=== PATIENT | female | born 1980 | race Caucasian/White ===

== ENCOUNTER 2016-08-25 10:25 | Emergency (ER) | payer SELFPAY ==
[~2016-08-25 10:25] MED LIST: 'PARAFON FORTE500 M1 PO; AMOXICILLIN500 M2 PO; AMOXICILLIN500 MG PO; AUGMENTIN 875 M1 TAB PO; CELEXA20 MG PO; CEPHALEXIN500 M1 PO; CLARITIN10 MG PO; CLEOCIN150 MG PO; DOXYCYCLINE100 M3 PO; FLAGYL500 MG PO; FLEXERIL5 MG PO; IBUPROFEN 30 M800 MG; LOTRIMIN1% T; MACROBID100 M1 PO; MACRODANTIN100 MG PO; MEDROL DOSEPAK4 MG PO; MOTRIN800 MG PO; Motrin,Rufen800 MG PO; NAPROSYN500 MG PO; OMNICEF300 MG; PEPCID20 MG PO; PERCOCET 325 MG1 TA2; PNV-TOTAL1 SGL PO; PREDNISONE10 MG PO; PRENATAL1 TA1; PRENATAL1 TA1 PO; PRENATAL1 TA3 PO; PREVACID15 MG PO; PROVENTIL0.09 MG/AC; PYRIDIUM200 MG PO; SEROQUEL300 MG; SEROQUEL50 MG PO; STRATTERA60 MG PO; ULTRAM50 MG; XANAX0.5 MG PO; XANAX1 MG PO; ZITHROMAX Z PA250 MG PO; ZOFRAN4 MG; ZOFRAN4 MG PO; ZOFRAN8 MG PO; ZYRTEC10 MG PO
[2016-08-25 10:31] VITALS: BP 159/87
[2016-08-25 11:02] LABS: BILIRUBIN 1+ (NEGATIVE); BLOOD TRACE-LYSED (NEGATIVE); CLARITY SL CLOUDY (CLEAR); COLOR YELLOW (YELLOW); GLUCOSE NEGATIVE (NEGATIVE); KETONE TRACE (NEGATIVE); LEUKO ESTERASE NEGATIVE (NEGATIVE); NITRITE NEGATIVE (NEGATIVE); PH 6.5 (5.0-9.0); PROTEIN 2+ (NEGATIVE); UROBILINOGEN 0.2 E.U./dl (0.2-1.0)
[2016-08-25 11:26] LABS: BACTERIA TRACE
[2016-08-25 11:27] LABS: URINE REFLEX COMMENT NO (NO)
[2016-08-25] MEDS ORDERED: CLINDAMYCIN150 MG PO (11:37)
== END 2016-08-25 13:34 | disposition home or self-care (01) ==
LOC: ED 10:25
PROVIDERS: Student in an Organized Health Care Education/Training Program
DX: O26.891 Other specified pregnancy related conditions, first trimester (principal); R10.9 Unspecified abdominal pain; O99.511 Diseases of the respiratory system complicating pregnancy, first trimester; J45.909 Unspecified asthma, uncomplicated; O99.611 Diseases of the digestive system complicating pregnancy, first trimester; K02.9 Dental caries, unspecified; O12.11 Gestational proteinuria, first trimester; O16.1 Unspecified maternal hypertension, first trimester; Z3A.12 12 weeks gestation of pregnancy; Z90.49 Acquired absence of other specified parts of digestive tract; Z88.8 Allergy status to other drugs, medicaments and biological substances

== ENCOUNTER 2018-03-29 09:12 | Emergency (ER) | payer OTHER ==
[~2018-03-29] VITALS: Ht 157.4 cm; Wt 97.1 kg
[2018-03-29 09:12] VITALS: BP 129/51
[~2018-03-29 09:12] MED LIST changes: +CLINDAMYCIN150 MG PO
[2018-03-29] MEDS ORDERED: PENICILLIN VK500 MG PO (09:19)
== END 2018-03-29 09:30 | disposition home or self-care (01) ==
LOC: ED 09:12
DX: O99.612 Diseases of the digestive system complicating pregnancy, second trimester (principal); O10.912 Unspecified pre-existing hypertension complicating pregnancy, second trimester; K02.9 Dental caries, unspecified; J45.909 Unspecified asthma, uncomplicated; Z3A.25 25 weeks gestation of pregnancy

== ENCOUNTER 2018-04-08 12:38 | Emergency (ER) | payer OTHER ==
[~2018-04-08] VITALS: Ht 157.4 cm; Wt 98.0 kg
[~2018-04-08 12:38] MED LIST changes: +PENICILLIN VK500 MG PO
[2018-04-08 12:39] VITALS: BP 126/81
[2018-04-08] MEDS ORDERED: CLINDAMYCIN HC300 MG PO (13:24)
== END 2018-04-08 13:45 | disposition home or self-care (01) ==
LOC: ED 12:38
DX: O99.612 Diseases of the digestive system complicating pregnancy, second trimester (principal); K08.89 Other specified disorders of teeth and supporting structures; Z88.8 Allergy status to other drugs, medicaments and biological substances; Z3A.27 27 weeks gestation of pregnancy

== ENCOUNTER 2019-02-05 09:19 | Emergency (ER) | payer OTHER ==
[~2019-02-05] VITALS: Ht 157.4 cm; Wt 86.2 kg
[~2019-02-05 09:19] MED LIST changes: +CLINDAMYCIN HC300 MG PO
[2019-02-05 09:21] VITALS: BP 121/71
[2019-02-05] MEDS ORDERED: LAMOTRIGINE25 M1 PO (09:22)
[2019-02-05] MEDS ORDERED: BUSPIRONE HCL10 MG PO (09:22)
[2019-02-05] MEDS ORDERED: AMOXICILLIN500 M3 PO (10:42)
== END 2019-02-05 10:58 | disposition home or self-care (01) ==
LOC: ED 09:19
DX: K04.7 Periapical abscess without sinus (principal); J06.9 Acute upper respiratory infection, unspecified; J45.909 Unspecified asthma, uncomplicated; F17.200 Nicotine dependence, unspecified, uncomplicated; Z88.8 Allergy status to other drugs, medicaments and biological substances; Z79.899 Other long term (current) drug therapy

== ENCOUNTER 2019-04-03 09:28 | Emergency (ER) | payer OTHER ==
[~2019-04-03] VITALS: Ht 157.4 cm; Wt 81.2 kg
[~2019-04-03 09:28] MED LIST changes: +AMOXICILLIN500 M3 PO; +BUSPIRONE HCL10 MG PO; +LAMOTRIGINE25 M1 PO
[2019-04-03 09:36] VITALS: BP 122/86
[2019-04-03 10:37] LABS: BILIRUBIN NEGATIVE (NEGATIVE); BLOOD NEGATIVE (NEGATIVE); CLARITY SL CLOUDY (CLEAR); COLOR YELLOW (YELLOW); GLUCOSE NEGATIVE (NEGATIVE); KETONE NEGATIVE (NEGATIVE); LEUKO ESTERASE NEGATIVE (NEGATIVE); NITRITE NEGATIVE (NEGATIVE); SPECIFIC GRAVITY >= 1.030 (1.005-1.030); UROBILINOGEN 0.2 E.U./dl (0.2-1.0)
[2019-04-03 10:53] LABS: BACTERIA TRACE; EPITHELIAL CELLS TNTC
[2019-04-03] MEDS ORDERED: IBU800 MG PO (11:03)
[2019-04-03] MEDS ORDERED: DOXYCYCLINE100 M3 PO (11:03)
== END 2019-04-03 11:07 | disposition home or self-care (01) ==
LOC: ED 09:28
PROVIDERS: Nurse Practitioner Family
DX: S30.0XXA Contusion of lower back and pelvis, initial encounter (principal); J32.9 Chronic sinusitis, unspecified; J45.909 Unspecified asthma, uncomplicated; M06.9 Rheumatoid arthritis, unspecified; F17.200 Nicotine dependence, unspecified, uncomplicated; W22.8XXA Striking against or struck by other objects, initial encounter; Y93.89 Activity, other specified; Y92.89 Other specified places as the place of occurrence of the external cause; Y99.8 Other external cause status

== ENCOUNTER 2019-04-25 12:28 | Emergency (ER) | payer OTHER ==
[~2019-04-25] VITALS: Ht 157.4 cm; Wt 81.2 kg
[~2019-04-25 12:28] MED LIST changes: +IBU800 MG PO
[2019-04-25 12:35] VITALS: BP 143/78
[2019-04-25] MEDS ORDERED: FLONASE ALLERG9.9 ML NAS (14:44)
[2019-04-25] MEDS ORDERED: CLARITIN10 MG PO (14:44)
== END 2019-04-25 14:48 | disposition home or self-care (01) ==
LOC: ED 12:28
DX: B34.9 Viral infection, unspecified (principal); R11.2 Nausea with vomiting, unspecified; J45.909 Unspecified asthma, uncomplicated; F17.200 Nicotine dependence, unspecified, uncomplicated; Z90.49 Acquired absence of other specified parts of digestive tract; Z88.8 Allergy status to other drugs, medicaments and biological substances; Z79.2 Long term (current) use of antibiotics; Z79.899 Other long term (current) drug therapy

== ENCOUNTER 2019-12-16 15:53 | Emergency (ER) | payer OTHER ==
[~2019-12-16 15:53] MED LIST changes: +FLONASE ALLERG9.9 ML NAS
[2019-12-16 15:59] VITALS: BP 125/81
[2019-12-16 16:22] LABS: BILIRUBIN Negative (Negative); BLOOD 3+ (Negative); CLARITY Clear (Clear); COLOR Yellow (Yellow); GLUCOSE Negative (Negative); KETONE Trace (Negative); LEUKO ESTERASE 1+ (Negative); NITRITE Negative (Negative); PH 6.5 (4.5-8.0)
[2019-12-16 16:28] LABS: BASO % 0.6 % (0.0-1.0); EOS # 0.1 10*3/uL (0.0-0.4); EOS % 1.7 % (1.0-4.0); LYMPH # 1.9 10*3/uL (1.3-4.4); LYMPH % 27.2 % (27.0-41.0); MEAN CELL VOLUME 95.1 fl (81.0-99.0); MEAN CORPUSCULAR HGB 31.6 pg (27.0-31.0); MEAN CORPUSCULAR HGB CONC 33.3 g/dl (33.0-37.0); MEAN PLATELET VOLUME 10.3 fl (9.6-12.3); MONO # 0.4 10*3/uL (0.1-1.0); MONO % 5.6 % (3.0-9.0); NEUT # 4.5 10*3/uL (2.3-7.9); NEUT % 64.8 % (47.0-73.0); PLATELET COUNT AUTOMATED 258 10*3/uL (130-400); RED BLOOD COUNT 4.52 10*6/uL (4.10-5.10); RED CELL DISTRI WIDTH 12.8 % (0-14.5); WHITE BLOOD COUNT 6.9 10*3/uL (4.8-10.8)
[2019-12-16 16:43] LABS: ALBUMIN 3.7 gm/dl (3.1-4.5); ALKALINE PHOSPHATASE 60 U/L (45-117); BUN 7 mg/dl (7-24); CHLORIDE 107 mmol/L (98-107); CREATININE 0.63 mg/dL (0.55-1.02); POTASSIUM 3.3 mmol/L (3.5-5.1); SGOT/AST 16 IU/L (3-35); SGPT/ALT 23 U/L (12-78); SODIUM 137 mmol/L (136-145); TOTAL PROTEIN 7.6 gm/dL (6.4-8.2)
[2019-12-16 16:51] LABS: BACTERIA 1+; RBC 0-2 rbc/hpf (0-2)
[2019-12-16] MEDS ORDERED: CEPHALEXIN500 M1 PO (18:46)
== END 2019-12-16 18:54 | disposition home or self-care (01) ==
LOC: ED 15:53
PROVIDERS: Nurse Practitioner Family
DX: O23.91 Unspecified genitourinary tract infection in pregnancy, first trimester (principal); Z3A.08 8 weeks gestation of pregnancy; Z88.8 Allergy status to other drugs, medicaments and biological substances; Z79.899 Other long term (current) drug therapy

== ENCOUNTER 2020-04-15 13:51 | Emergency (ER) | payer OTHER ==
[~2020-04-15] VITALS: Ht 157.4 cm; Wt 78.0 kg
[2020-04-15 14:01] VITALS: BP 135/80
[2020-04-15] MEDS ORDERED: NAPROXEN250 MG PO (14:22)
[2020-04-15] MEDS ORDERED: TYLENOL325 M1 PO (14:22)
[2020-04-15] MEDS ORDERED: CYCLOBENZAPRINE10 MG PO (14:22)
== END 2020-04-15 14:28 | disposition home or self-care (01) ==
LOC: ED 13:51
DX: M79.18 Myalgia, other site (principal); M54.6 Pain in thoracic spine; E66.9 Obesity, unspecified; J45.909 Unspecified asthma, uncomplicated; I10 Essential (primary) hypertension; F41.9 Anxiety disorder, unspecified; F17.210 Nicotine dependence, cigarettes, uncomplicated; Z90.49 Acquired absence of other specified parts of digestive tract; Z88.6 Allergy status to analgesic agent; Z79.2 Long term (current) use of antibiotics; Z79.899 Other long term (current) drug therapy; W01.0XXA Fall on same level from slipping, tripping and stumbling without subsequent striking against object, initial encounter; Y93.89 Activity, other specified; Y92.89 Other specified places as the place of occurrence of the external cause; Y99.8 Other external cause status

== ENCOUNTER 2022-05-07 11:04 | Emergency (ER) | payer OTHER ==
[~2022-05-07] VITALS: Wt 88.5 kg
[~2022-05-07 11:04] MED LIST changes: +CYCLOBENZAPRINE10 MG PO; +NAPROXEN250 MG PO; +TYLENOL325 M1 PO
[2022-05-07 11:13] VITALS: BP 131/73
[2022-05-07 12:21] LABS: BASO % 0.5 % (0.0-1.0); EOS # 0.1 10*3/uL (0.0-0.4); EOS % 1.5 % (1.0-4.0); HEMATOCRIT 42.2 % (37.0-47.0); LYMPH # 1.6 10*3/uL (1.3-4.4); LYMPH % 21.7 % (27.0-41.0); MEAN CELL VOLUME 95.5 fl (81.0-99.0); MEAN CORPUSCULAR HGB 32.4 pg (27.0-31.0); MEAN CORPUSCULAR HGB CONC 33.9 g/dl (33.0-37.0); MEAN PLATELET VOLUME 10.1 fl (9.6-12.3); MONO # 0.5 10*3/uL (0.1-1.0); MONO % 6.9 % (3.0-9.0); NEUT # 5.2 10*3/uL (2.3-7.9); NEUT % 69.1 % (47.0-73.0); PLATELET COUNT AUTOMATED 285 10*3/uL (130-400); RED BLOOD COUNT 4.42 10*6/uL (4.10-5.10); RED CELL DISTRI WIDTH 13.5 % (0-14.5); WHITE BLOOD COUNT 7.5 10*3/uL (4.8-10.8)
[2022-05-07 12:50] LABS: ALKALINE PHOSPHATASE 45 U/L (46-116); BUN 6 mg/dl (9-23); CHLORIDE 103 mmol/L (98-107); POTASSIUM 3.9 mmol/L (3.4-5.1); SGPT/ALT 25 U/L (10-49); TOTAL PROTEIN 7.3 gm/dL (6.0-8.0)
== END 2022-05-07 16:26 | disposition home or self-care (01) ==
LOC: ED 11:04
PROVIDERS: Internal Medicine
DX: O46.91 Antepartum hemorrhage, unspecified, first trimester (principal); J45.909 Unspecified asthma, uncomplicated; F41.9 Anxiety disorder, unspecified; Z90.49 Acquired absence of other specified parts of digestive tract; Z88.8 Allergy status to other drugs, medicaments and biological substances; Z98.890 Other specified postprocedural states; Z3A.01 Less than 8 weeks gestation of pregnancy

== ENCOUNTER 2022-06-14 10:31 | Emergency (ER) | payer OTHER | END 2022-06-14 10:42 | disposition left against medical advice (07) | LOC: ED 10:31 | DX: Z53.21 Procedure and treatment not carried out due to patient leaving prior to being seen by health care provider (principal) ==

== ENCOUNTER 2022-06-20 09:32 | Emergency (ER) | payer OTHER ==
[~2022-06-20] VITALS: Ht 157.4 cm; Wt 97.5 kg
[2022-06-20 09:40] VITALS: BP 128/89
[2022-06-20 09:59] LABS: BILIRUBIN Negative (Negative); BLOOD Negative (Negative); CLARITY Clear (Clear); COLOR Yellow (Yellow); GLUCOSE Negative (Negative); KETONE Negative (Negative); LEUKO ESTERASE Trace (Negative); NITRITE Negative (Negative); PH 6.5 (4.5-8.0); SPECIFIC GRAVITY 1.015 (1.001-1.030)
[2022-06-20 10:12] LABS: BASO % 0.3 % (0.0-1.0); EOS # 0.2 10*3/uL (0.0-0.4); EOS % 1.8 % (1.0-4.0); HEMATOCRIT 38.4 % (37.0-47.0); LYMPH # 1.5 10*3/uL (1.3-4.4); LYMPH % 16.8 % (27.0-41.0); MEAN CELL VOLUME 94.8 fl (81.0-99.0); MEAN CORPUSCULAR HGB 33.3 pg (27.0-31.0); MEAN CORPUSCULAR HGB CONC 35.2 g/dl (33.0-37.0); MEAN PLATELET VOLUME 10.1 fl (9.6-12.3); MONO # 0.6 10*3/uL (0.1-1.0); MONO % 6.6 % (3.0-9.0); NEUT # 6.4 10*3/uL (2.3-7.9); NEUT % 73.9 % (47.0-73.0); PLATELET COUNT AUTOMATED 260 10*3/uL (130-400); RED BLOOD COUNT 4.05 10*6/uL (4.10-5.10); WHITE BLOOD COUNT 8.7 10*3/uL (4.8-10.8)
[2022-06-20 10:36] LABS: BACTERIA 2+; EPITHELIAL CELLS 16-20; MUCOUS 1+
[2022-06-20 10:45] LABS: ALKALINE PHOSPHATASE 49 U/L (46-116); CHLORIDE 106 mmol/L (98-107); LIPASE 30 U/L (12-53); POTASSIUM 3.6 mmol/L (3.4-5.1); SGPT/ALT 17 U/L (10-49); TOTAL PROTEIN 6.7 gm/dL (6.0-8.0)
[2022-06-20 10:55] LABS: BUN < 5 mg/dl (9-23)
[2022-06-20] MEDS ORDERED: MACROBID100 M1 PO (11:33)
== END 2022-06-20 11:36 | disposition home or self-care (01) ==
LOC: ED 09:32
PROVIDERS: Emergency Medicine
DX: O23.91 Unspecified genitourinary tract infection in pregnancy, first trimester (principal); Z20.2 Contact with and (suspected) exposure to infections with a predominantly sexual mode of transmission; Z3A.13 13 weeks gestation of pregnancy; Z88.8 Allergy status to other drugs, medicaments and biological substances; Z79.899 Other long term (current) drug therapy

== ENCOUNTER 2022-11-05 11:33 | Emergency (ER) | payer OTHER ==
[~2022-11-05] VITALS: Ht 157.4 cm; Wt 108.0 kg
[2022-11-05 11:43] VITALS: BP 156/93
[2022-11-05] MEDS ORDERED: CLINDAMYCIN HC300 MG PO (11:49)
== END 2022-11-05 11:59 | disposition home or self-care (01) ==
LOC: ED 11:33
DX: K02.9 Dental caries, unspecified (principal); J45.909 Unspecified asthma, uncomplicated; F41.9 Anxiety disorder, unspecified; Z88.8 Allergy status to other drugs, medicaments and biological substances; Z98.890 Other specified postprocedural states; Z90.49 Acquired absence of other specified parts of digestive tract

== ENCOUNTER 2023-09-26 13:47 | Emergency (ER) | payer OTHER ==
[~2023-09-26] VITALS: Ht 157.4 cm; Wt 93.0 kg
[2023-09-26 14:04] VITALS: BP 109/87
[2023-09-26] MEDS ORDERED: PENICILLIN VK500 MG PO (14:26)
== END 2023-09-26 15:20 | disposition home or self-care (01) ==
LOC: ED 13:47
DX: K08.89 Other specified disorders of teeth and supporting structures (principal); J45.909 Unspecified asthma, uncomplicated; F41.9 Anxiety disorder, unspecified; Z88.8 Allergy status to other drugs, medicaments and biological substances; Z98.890 Other specified postprocedural states; Z90.49 Acquired absence of other specified parts of digestive tract

== ENCOUNTER 2023-11-12 15:09 | Emergency (ER) | payer OTHER ==
[~2023-11-12] VITALS: Ht 157.4 cm; Wt 86.2 kg
[2023-11-12 15:18] VITALS: BP 113/95
[2023-11-12] MEDS ORDERED: ATOMOXETINE HCL60 MG PO (15:20)
[2023-11-12] MEDS ORDERED: DOCUSATE SOD100 MG PO (15:20)
[2023-11-12] MEDS ORDERED: REXULTI1 MG PO (15:20)
[2023-11-12] MEDS ORDERED: 'XANAX1 MG PO (15:20)
[2023-11-12] MEDS ORDERED: ZOLPIDEM10 MG PO (15:21)
[2023-11-12] MEDS ORDERED: Acetaminophen/Oxycodone 5 MG/325 MG TABLET PO ONE (16:00)
[2023-11-12] MEDS ORDERED: NAPROSYN500 MG PO (16:21)
== END 2023-11-12 16:49 | disposition home or self-care (01) ==
LOC: ED 15:09
DX: S60.211A Contusion of right wrist, initial encounter (principal); J45.909 Unspecified asthma, uncomplicated; I10 Essential (primary) hypertension; Z88.8 Allergy status to other drugs, medicaments and biological substances; Z90.49 Acquired absence of other specified parts of digestive tract; Z98.890 Other specified postprocedural states; W22.03XA Walked into furniture, initial encounter; Y93.89 Activity, other specified; Y92.89 Other specified places as the place of occurrence of the external cause; Y99.8 Other external cause status

== ENCOUNTER 2023-11-23 12:39 | Emergency (ER) | payer OTHER ==
[~2023-11-23 12:39] MED LIST changes: +'XANAX1 MG PO; +ATOMOXETINE HCL60 MG PO; +DOCUSATE SOD100 MG PO; +REXULTI1 MG PO; +ZOLPIDEM10 MG PO
[2023-11-23 13:11] VITALS: BP 129/83
[2023-11-23] MEDS ORDERED: ACETAMINOPHEN 325 MG TAB PO ONE (13:15)
== END 2023-11-23 15:04 | disposition home or self-care (01) ==
LOC: ED 12:39
DX: S82.61XA Displaced fracture of lateral malleolus of right fibula, initial encounter for closed fracture (principal); J45.909 Unspecified asthma, uncomplicated; F41.9 Anxiety disorder, unspecified; Z88.8 Allergy status to other drugs, medicaments and biological substances; Z90.49 Acquired absence of other specified parts of digestive tract; Z98.890 Other specified postprocedural states; Z87.891 Personal history of nicotine dependence; X50.1XXA Overexertion from prolonged static or awkward postures, initial encounter; Y93.01 Activity, walking, marching and hiking; Y92.410 Unspecified street and highway as the place of occurrence of the external cause; Y99.8 Other external cause status

== ENCOUNTER → 2024-07-06 | Outpatient (CLI) | payer OTHER | END | disposition home or self-care (01) | LOC: LAB 11:34 | PROVIDERS: ATTEND Nurse Practitioner Women's Health | DX: N92.6 Irregular menstruation, unspecified (principal) ==

== ENCOUNTER 2024-10-07 14:09 | Emergency (ER) | payer OTHER ==
[~2024-10-07] VITALS: Ht 157.4 cm; Wt 89.8 kg
[2024-10-07 14:25] VITALS: BP 132/80
[2024-10-07] MEDS ORDERED: ATOMOXETINE HC100 MG PO (14:28)
[2024-10-07] MEDS ORDERED: PREDNISONE20 M1 PO (17:26)
[2024-10-07] MEDS ORDERED: GUAIFENESIN AC473 M1 PO (17:26)
[2024-10-07] MEDS ORDERED: Ondansetron4 MG PO (17:26)
[2024-10-07] MEDS ORDERED: ZITHROMAX250 MG PO (17:29)
[2024-10-07] MEDS ORDERED: ALBUTEROL 8 GM INHALER INH ONE (17:30)
[2024-10-07] MEDS ORDERED: Ondansetron Hydrochloride 4 MG TAB PO ONE (17:30)
[2024-10-07] MEDS ORDERED: Dexamethasone Sodium Phospha 20 MG/5 ML VIAL IM ONE (17:30)
== END 2024-10-07 17:51 | disposition home or self-care (01) ==
LOC: ED 14:09
DX: J20.9 Acute bronchitis, unspecified (principal); Z20.822 Contact with and (suspected) exposure to COVID-19; H92.01 Otalgia, right ear; R11.10 Vomiting, unspecified; R19.7 Diarrhea, unspecified; F17.200 Nicotine dependence, unspecified, uncomplicated; Z88.8 Allergy status to other drugs, medicaments and biological substances; Z79.899 Other long term (current) drug therapy; Z90.49 Acquired absence of other specified parts of digestive tract

== ENCOUNTER → 2024-10-20 | Outpatient (CLI) | payer OTHER ==
[~2024-10-20] MED LIST changes: +ATOMOXETINE HC100 MG PO; +GUAIFENESIN AC473 M1 PO; +Ondansetron4 MG PO; +PREDNISONE20 M1 PO; +ZITHROMAX250 MG PO
== END | disposition home or self-care (01) ==
LOC: LAB 09:08
PROVIDERS: ATTEND Nurse Practitioner Women's Health
DX: N95.1 Menopausal and female climacteric states (principal); R53.83 Other fatigue

== ENCOUNTER → 2024-10-27 | Outpatient (CLI) | payer OTHER | END | disposition home or self-care (01) | LOC: RESCLI 09:41 | PROVIDERS: ATTEND Internal Medicine | DX: F31.9 Bipolar disorder, unspecified (principal); R06.02 Shortness of breath; M25.50 Pain in unspecified joint ==

== ENCOUNTER → 2024-11-02 | Outpatient (CLI) | payer OTHER ==
[2024-11-02 11:51] LABS: BASO # 0.0 10*3/uL (0.0-0.1); BASO % 0.6 % (0.0-1.0); EOS # 0.3 10*3/uL (0.0-0.4); EOS % 3.8 % (1.0-4.0); MEAN CELL VOLUME 97.1 fl (81.0-99.0); MEAN CORPUSCULAR HGB 32.3 pg (27.0-31.0); MEAN PLATELET VOLUME 10.1 fl (9.6-12.3); MONO # 0.5 10*3/uL (0.1-1.0); MONO % 6.6 % (3.0-9.0); NEUT # 4.2 10*3/uL (2.3-7.9); NEUT % 58.1 % (47.0-73.0); NUCLEATED RED BLOOD CELL 0.0 % (0.0-0.0); NUCLEATED RED BLOOD CELL 0.0 10*3/uL (0.0-0.0); PLATELET COUNT AUTOMATED 280 10*3/uL (130-400); RED CELL DISTRI WIDTH 13.5 % (0-14.5)
[2024-11-02 12:17] LABS: BUN 10 mg/dl (9-23); LDL CHOLESTEROL 92 mg/dL (9-159); SGPT/ALT 21 U/L (5-49)
[2024-11-03 12:07] LABS: ANTI-DSDNA ANTIBODIES <1 IU/mL (0-9); ANTI-RNP ANTIBODIES <0.2 AI (0.0-0.9); ANTICHROMATIN ANTIBODIES <0.2 AI (0.0-0.9); ANTISCLERODERMA-70 AB 0.4 AI (0.0-0.9)
== END | disposition home or self-care (01) ==
LOC: LAB 11:16
PROVIDERS: Student in an Organized Health Care Education/Training Program; ATTEND Internal Medicine
DX: M25.50 Pain in unspecified joint (principal)

== ENCOUNTER 2025-01-13 12:51 | Emergency (ER) | payer OTHER ==
[~2025-01-13] VITALS: Ht 157.4 cm; Wt 85.7 kg
[2025-01-13 13:12] VITALS: BP 117/63
[2025-01-13] MEDS ORDERED: Albuterol Sulf/Ipratropium 3 ML VIAL NEB ONE (13:25)
[2025-01-13 13:39] LABS: BASO # 0.1 10*3/uL (0.0-0.1); BASO % 0.8 % (0.0-1.0); EOS # 0.3 10*3/uL (0.0-0.4); EOS % 3.1 % (1.0-4.0); MEAN CELL VOLUME 96.7 fl (81.0-99.0); MEAN CORPUSCULAR HGB 32.9 pg (27.0-31.0); MEAN PLATELET VOLUME 10.5 fl (9.6-12.3); MONO # 0.6 10*3/uL (0.1-1.0); MONO % 7.5 % (3.0-9.0); NEUT # 5.0 10*3/uL (2.3-7.9); NEUT % 59.6 % (47.0-73.0); NUCLEATED RED BLOOD CELL 0.0 % (0.0-0.0); NUCLEATED RED BLOOD CELL 0.0 10*3/uL (0.0-0.0); PLATELET COUNT AUTOMATED 298 10*3/uL (130-400); RED CELL DISTRI WIDTH 13.2 % (0-14.5)
[2025-01-13 14:00] LABS: BUN 10 mg/dl (9-23)
[2025-01-13] MEDS ORDERED: PREDNISONE20 M1 PO (14:15)
[2025-01-13] MEDS ORDERED: AVPAK AZITHROM250 M1 PO (14:15)
[2025-01-13] MEDS ORDERED: AZITHROMYCIN 250 MG TAB PO ONE (14:20)
== END 2025-01-13 14:18 | disposition home or self-care (01) ==
LOC: ED 12:51
PROVIDERS: Nurse Practitioner Family
DX: J45.909 Unspecified asthma, uncomplicated (principal); I10 Essential (primary) hypertension; F41.9 Anxiety disorder, unspecified; F17.210 Nicotine dependence, cigarettes, uncomplicated; Z87.440 Personal history of urinary (tract) infections

== ENCOUNTER 2025-01-21 07:31 | Emergency (ER) | payer OTHER ==
[~2025-01-21] VITALS: Wt 82.6 kg
[~2025-01-21 07:31] MED LIST changes: +AVPAK AZITHROM250 M1 PO
[2025-01-21 07:46] VITALS: BP 128/79
== END 2025-01-21 08:42 | disposition home or self-care (01) ==
LOC: ED 07:31
DX: S40.011A Contusion of right shoulder, initial encounter (principal); R20.2 Paresthesia of skin; Z88.8 Allergy status to other drugs, medicaments and biological substances; Z79.899 Other long term (current) drug therapy; Z90.49 Acquired absence of other specified parts of digestive tract; W18.39XA Other fall on same level, initial encounter; Y93.89 Activity, other specified; Y92.89 Other specified places as the place of occurrence of the external cause; Y99.8 Other external cause status

== ENCOUNTER 2025-02-01 07:53 | Emergency (ER) | payer OTHER ==
[~2025-02-01] VITALS: Ht 157.4 cm; Wt 83.9 kg
[2025-02-01 08:07] VITALS: BP 151/87
[2025-02-01] MEDS ORDERED: Albuterol Sulf/Ipratropium 3 ML VIAL NEB ONE (08:40)
[2025-02-01] MEDS ORDERED: ZITHROMAX250 MG PO (09:56)
[2025-02-01] MEDS ORDERED: PREDNISONE20 M1 PO (09:56)
== END 2025-02-01 10:12 | disposition home or self-care (01) ==
LOC: ED 07:53
DX: J45.901 Unspecified asthma with (acute) exacerbation (principal); M25.511 Pain in right shoulder; J06.9 Acute upper respiratory infection, unspecified; F41.9 Anxiety disorder, unspecified; F17.200 Nicotine dependence, unspecified, uncomplicated; Z90.49 Acquired absence of other specified parts of digestive tract; Z88.8 Allergy status to other drugs, medicaments and biological substances

== ENCOUNTER → 2025-02-10 | Outpatient (CLI) | payer OTHER | END | disposition home or self-care (01) | LOC: ORTHO 01:27 | PROVIDERS: ATTEND Orthopaedic Surgery | DX: M25.511 Pain in right shoulder (principal) ==

== ENCOUNTER 2025-02-17 15:26 | Emergency (ER) | payer OTHER ==
[~2025-02-17] VITALS: Wt 90.7 kg
[2025-02-17 16:11] VITALS: BP 151/100
[2025-02-17] MEDS ORDERED: BENZOCAINE 20% 11.9 GM GEL T STA (16:38)
[2025-02-17] MEDS ORDERED: CLINDAMYCIN HCL 300 MG CAPSULE PO ONE (16:40)
[2025-02-17] MEDS ORDERED: CLINDAMYCIN HC300 MG PO (16:40)
[2025-02-17] MEDS ORDERED: MELOXICAM15 MG PO (16:40)
== END 2025-02-17 16:54 | disposition home or self-care (01) ==
LOC: ED 15:26
DX: K04.7 Periapical abscess without sinus (principal); K02.9 Dental caries, unspecified; J45.909 Unspecified asthma, uncomplicated; F41.9 Anxiety disorder, unspecified; F17.200 Nicotine dependence, unspecified, uncomplicated; Z88.8 Allergy status to other drugs, medicaments and biological substances; Z90.49 Acquired absence of other specified parts of digestive tract

== ENCOUNTER 2025-02-21 17:24 | Emergency (ER) | payer OTHER ==
[~2025-02-21] VITALS: Wt 85.7 kg
[~2025-02-21 17:24] MED LIST changes: +MELOXICAM15 MG PO
[2025-02-21 17:39] VITALS: BP 141/72
== END 2025-02-21 19:23 | disposition home or self-care (01) ==
LOC: ED 17:24
DX: S93.401A Sprain of unspecified ligament of right ankle, initial encounter (principal); J45.909 Unspecified asthma, uncomplicated; F41.9 Anxiety disorder, unspecified; Z90.49 Acquired absence of other specified parts of digestive tract; Z88.8 Allergy status to other drugs, medicaments and biological substances; W19.XXXA Unspecified fall, initial encounter; Y93.89 Activity, other specified; Y92.89 Other specified places as the place of occurrence of the external cause; Y99.8 Other external cause status